=== PATIENT | male | born 1940 | race Caucasian/White ===

== ENCOUNTER → 2021-03-18 | Outpatient (CLI) | payer MEDICARE ==
[~2021-03-18] MED LIST: ALBUTEROL2.5 MG/3 M INH; ALPRAZOLAM0.5 MG PO; ELIQUIS 5 MG TAB5 MG PO; FLAGYL500 MG PO; FLOMAX0.4 MG PO; LEVAQUIN500 MG PO; LORTAB 7.5-3251 EACH PO; PROSCAR5 MG PO; SYMBICORT 160-1 INHA INH; TENORMIN 25 MG25 MG PO
== END ==
LOC: CT 12:50
DX: R06.02 Shortness of breath (principal); R07.9 Chest pain, unspecified; Z90.2 Acquired absence of lung [part of]
CPT/HCPCS: 36415; 71270; 82565; 84520; Q9967

== ENCOUNTER → 2021-03-31 | Outpatient (CLI) | payer MEDICARE | LOC: NM 12:26 | DX: R07.9 Chest pain, unspecified (principal); R06.02 Shortness of breath | CPT/HCPCS: 78452; A9502; J2785 ==

== ENCOUNTER → 2021-04-01 | Outpatient (CLI) | payer MEDICARE, OTHER | LOC: NM 13:10 | DX: R07.9 Chest pain, unspecified (principal); R06.02 Shortness of breath; I25.2 Old myocardial infarction | CPT/HCPCS: A9502; J2785 ==